=== PATIENT | female | born 1955 | race Caucasian/White ===

== ENCOUNTER 2019-04-18 14:27 | Outpatient (CLI) | payer MEDICARE, MEDICAID ==
[~2019-04-18 14:27] MED LIST: ACIFEX; ALPR-624 PO; CITA40TA22 PO; CLARITEN; ESTR10TA VG; FLEXARIL; FURO80TA87 PO; FUROCET PO; MAGN400C PO; METF500T20 PO; MOBIC; POTA10CA44 PO; TENORMIN
== END 2019-04-18 23:59 | disposition home or self-care (01) ==
LOC: RAD 14:27
PROVIDERS: ATTEND Family Medicine
DX: M47.812 Spondylosis without myelopathy or radiculopathy, cervical region (principal); M50.21 Other cervical disc displacement, high cervical region
CPT/HCPCS: 72141